=== PATIENT | female | born 1975 | race Caucasian/White ===

== ENCOUNTER 2021-10-14 09:47 | Emergency (ER) | payer OTHER, SELFPAY ==
[2021-10-14 09:48] VITALS: BP 136/100; PULSE 72; RESP 20; TEMP 36.6; O2SAT 98; BMI 23.8
--- NOTE | 2021-10-14 10:48 | HMH.EDGENADL ---
ED Disposition Clinical Impression: Opioid withdrawal Disposition: Home, Self-Care Condition on Discharge: Good Additional Instructions: Please follow-up with a Suboxone clinic of your choosing, or call inpatient drug rehabilitation center for assistance, please return to the ED for any new or worsening symptoms. Prescriptions: Buprenorphine HCl/Naloxone HCl [Suboxone 8 mg-2 mg Sl Film] 2 each SL DAILY 3 Days #6 film Prescription Printed Buprenorphine HCl/Naloxone HCl [Suboxone 8 mg-2 mg Sl Film] 2 each SL DAILY #6 film Transmission Status: Received by [email or web address] Ondansetron [Zofran 4mg ODT] 4 mg PO TIDP PRN #12 tab PRN Reason: Nausea And Vomiting Transmission Status: Received by [email or web address] Referrals: Provider,Referral, [Primary Care Provider] - - Critical Care Critical Care Time: No Attestation: On 10/14/21, the high probability of a clinically significant, sudden or life threatening deterioration of the following system(s) required my full and direct attention, intervention and personal management. The time I documented below is in addition to time spent performing reported procedures but includes the following listed in this critical care notation. Medical Decision Making - Medical Records Medical records reviewed: Yes: I reviewed the patient's medical records. - Jerry Inquiry Pt receiving controlled substance: Yes Jerry was queried for this patient: Yes Risks and benefits of using a controlled substance: were discussed with pt by me Vital Signs: 10/14/21 09:48 10/14/21 15:01 Temperature 98 F 98.5 F Temperature Source Oral Oral Pulse Rate 80 Pulse Rate [Radial] 72 Respiratory Rate 20 16 Blood Pressure 132/84 Blood Pressure [Right Arm] 136/100 H Blood Pressure Mean [Right Arm] 112 Blood Pressure Source Automatic Cuff Blood Pressure Position Sitting Blood Pressure Position [Right Arm] Sitting 02 Sat by Pulse Oximetry 98 Oxygen Delivery Method Room Air Room Air Orders (Tests/Meds): ED MEDICATIONS Discontinued Medications Generic Name Dose Route Start Last Admin Trade Name Freq PRN Reason Stop Dose Admin Buprenorphine/Naloxone 1 each 10/14/21 10:17 10/14/21 10:43 Buprenorphine/Naloxone 8mg/2mg Odt 10/14/21 10:18 1 each ONCE ONE Administration Buprenorphine/Naloxone 1 each 10/14/21 11:02 10/14/21 11:15 Buprenorphine/Naloxone 8mg/2mg Odt 10/14/21 11:03 1 each ONCE ONE Administration Buprenorphine/Naloxone 1 each 10/14/21 12:07 10/14/21 12:33 Buprenorphine/Naloxone 8mg/2mg Odt SL 10/14/21 12:08 1 each ONCE ONE Administration Buprenorphine/Naloxone 1 each 10/14/21 12:49 10/14/21 14:05 Buprenorphine/Naloxone 8mg/2mg Odt SL 10/14/21 12:50 1 each ONCE ONE Administration Clonidine HCl 0.2 mg 10/14/21 13:00 Clonidine 0.2mg Tablet PO 11/13/21 12:59 TID PATO Clonidine HCl 0.2 mg 10/14/21 11:04 10/14/21 11:05 Clonidine 0.1mg Tablet PO 10/14/21 11:05 0.2 mg ONCE ONE Administration Ketorolac Tromethamine 15 mg 10/14/21 11:01 10/14/21 11:03 Ketorolac 30mg/Ml Vial IM 10/14/21 11:02 15 mg ONCE ONE Administration Lorazepam 2 mg 10/14/21 13:19 10/14/21 13:45 Lorazepam 1mg Tablet PO 10/14/21 13:20 2 mg ONCE ONE Administration Ondansetron HCl 4 mg 10/14/21 10:16 10/14/21 10:27 Ondansetron 4mg Odt SL 10/14/21 10:17 4 mg ONCE ONE Administration Medical Decision Narrative: Patient is a 46-year-old female presents to the ED today for further evaluation of opiate withdrawal, patient with body aches, chills, symptoms of opioid withdrawal with elevated COWS score on exam, certainly in withdrawal, I discussed with her the benefits of starting Suboxone, as she is interested in quitting heroin. We will start Suboxone initiation here in the emergency department 8 mg sublingual, continue to reassess and administer additional if needed, will also administer 4 mg of p.o.
[2021-10-14 15:01] VITALS: BP 132/84; PULSE 80; RESP 16; TEMP 36.9; O2SAT 98
== END 2021-10-14 15:02 | disposition home or self-care (01) ==
PROVIDERS: Emergency Provider Student in an Organized Health Care Education/Training Program
DX: F11.93 Opioid use, unspecified with withdrawal (principal); M62.838 Other muscle spasm; R11.0 Nausea; F17.210 Nicotine dependence, cigarettes, uncomplicated
CPT/HCPCS: 96372; 96374; 99284; J0574

== ENCOUNTER → 2022-06-11 11:32 | Outpatient (CLI) | payer OTHER, SELFPAY | PROVIDERS: PCP Nurse Practitioner Family; Visit Provider Nurse Practitioner Family | DX: J02.9 Acute pharyngitis, unspecified (principal) | CPT/HCPCS: 87070 ==

== ENCOUNTER 2022-07-13 11:35 | Emergency (ER) | payer OTHER, SELFPAY ==
[2022-07-13 11:40] VITALS: BP 140/99; PULSE 82; O2SAT 100
[2022-07-13 11:46] VITALS: BP 140/99; PULSE 85; RESP 12; TEMP 36.8; O2SAT 99; BMI 27.4
--- NOTE | 2022-07-13 11:50 | CT_ITS ---
PROCEDURE INFORMATION: Exam: CT Head Without Contrast Exam date and time: 07/13/2022 12:31 PM Age: 47 years old Clinical indication: Injury or trauma; Fall; Work related; Bleeding/hemorrhage and blunt trauma (contusions or hematomas); Without loss of consciousness; Patient HX: Patient fell and hit head on a sink at [employer] where she works. No loc. Laceration on back of head. ; Additional info: Fall, OLIVER TECHNIQUE: Imaging protocol: Computed tomography of the head without contrast. Radiation optimization: All CT scans at this facility use at least one of these dose optimization techniques: automated exposure control; mA and/or kV adjustment per patient size (includes targeted exams where dose is matched to clinical indication); or iterative reconstruction. Other protocol: This patient has received 0 known CTs and 0 known cardiac nuclear medicine studies in the 12 months prior to the current study. COMPARISON: No relevant prior studies available. FINDINGS: Brain: Normal. No hemorrhage. Unremarkable white matter. No mass effect. Cerebral ventricles: No ventriculomegaly. Paranasal sinuses: Near complete opacification of right maxillary sinus. Mastoid air cells: Visualized mastoid air cells are well aerated. Bones/joints: Unremarkable. No acute fracture. Soft tissues: Unremarkable. IMPRESSION: No acute intracranial abnormality. Right maxillary sinus congestion/sinusitis.
--- NOTE | 2022-07-13 11:53 | HMH.EDGENADL ---
Discharge Plan Disposition Patient Disposition: Home, Self-Care Condition: Good Prescriptions Prescriptions: New doxycycline hyclate 100 mg capsule 100 mg PO BID 10 Days Qty: 20 0RF No Action ibuprofen 200 mg capsule 400 mg PO Q6H PRN amoxicillin 875 mg tablet 875 mg PO BID 10 Days Qty: 20 0RF Referrals Follow up/Referrals: Provider,Referral, [Primary Care Provider] - See instructions Clinical Impressions Clinical Impression: Concussion, Sinusitis, acute maxillary Instructions Patient Instructions: DI for Sinusitis Discharge ED Provider: Shant Cook General Adult HPI General Chief complaint: Fall Stated complaint: Fall@work 07/13 1120 Hit RT side of head Time Seen by Provider: 07/13/22 13:22 Mode of Arrival: Ambulatory Source of Information: Patient Limitations: No Limitations Description of Symptoms (Recalled from ER Triage Doc. by RN): Pt slipped on slick floor at work [employer] and fell striking head w very small lac to right superioparietal scalp, swelling, and upper neck discomfort, ttp; pt denies LOC, n/v, endorses LMP now History of Present Illness HPI narrative: Patient presents to the emergency department after reportedly slipping and falling just prior to arrival while at her job site. The patient states that she struck the right side of her head. She comes in complaining of a headache but denies any loss of consciousness. Denies any significant neck pain, back pain, chest pain or abdominal pain. Has no numbness, tingling or weakness in any of her arms or legs. Unsure of her last tetanus shot but states that its been greater than 5 years. Related Data Home Medications Medication Instructions Recorded Confirmed ibuprofen 200 mg capsule 400 mg PO Q6H PRN 06/11/22 06/11/22 Previous Rx's Medication Instructions Recorded amoxicillin 875 mg tablet 875 mg PO BID 10 days #20 tabs 06/11/22 doxycycline hyclate 100 mg capsule 100 mg PO BID 10 days #20 caps 07/13/22 Allergies Allergy/AdvReac Type Severity Reaction Status Date / Time Dexamethasone Allergy Intermediate I-RASH Uncoded 06/11/22 11:03 Erythromycin Allergy Intermediate I-RASH Uncoded 06/11/22 11:03 [facility] Disclaimer: The information contained in this section may have been updated after the patient was seen, as this information can be updated by other users. Social History (Updated 06/11/22 @ 11:05 by Yoana Almendarez MA) Smoking Status: Current every day smoker tobacco type: cigarettes packs per day: 1 alcohol intake: never substance use type: former substance user current occupational status: unemployed Travel in the last 8 weeks: None ROS Obtained: Yes All systems reviewed & no additional complaints except as documented Constitutional Constitutional: Reports headache(s) ENT Ears, Nose, Mouth, and Throat: Reports headache(s) Neurologic Neurologic: Reports headache(s) Physical Exam General General appearance: alert and in no apparent distress Head Head exam: normocephalic and other (Right parietal contusion with swelling and mild superficial abrasion noted) Eye Eye exam: Present normal appearance, PERRL and EOMI Neck Neck exam: Present normal inspection and full ROM Chest Chest inspection: Present normal inspection Respiratory Respiratory exam: Present normal lung sounds bilaterally Cardiovascular Cardiovascular exam: Present regular rate, normal rhythm and normal heart sounds Abdominal Exam Abdominal exam: Present soft, tenderness (No abdominal tenderness) and normal bowel sounds Extremities Exam Extremities exam: Present normal inspection and full ROM Back Exam Back exam: Present normal inspection Neurological Exam Neurological exam: Present alert, oriented X3, CN II-XII intact and motor sensory deficit Psychiatric Psychiatric exam: Present normal affect and normal mood Medical Decision Making Medical Records Medical records reviewed: Yes I reviewed the patient's medical recor
[2022-07-13 12:00] VITALS: BP 149/100; PULSE 82; O2SAT 99
[2022-07-13 13:25] VITALS: BP 117/73; PULSE 70; RESP 16; TEMP 36.8; O2SAT 99
== END 2022-07-13 13:27 | disposition home or self-care (01) ==
PROVIDERS: Emergency Provider Emergency Medicine
DX: S06.0X0A Concussion without loss of consciousness, initial encounter (principal); J01.00 Acute maxillary sinusitis, unspecified; W01.0XXA Fall on same level from slipping, tripping and stumbling without subsequent striking against object, initial encounter; Y99.0 Civilian activity done for income or pay; F17.210 Nicotine dependence, cigarettes, uncomplicated; Z23 Encounter for immunization
CPT/HCPCS: 70450; 90471; 90714; 99284